=== PATIENT | male | born 1965 | race Caucasian/White ===

== ENCOUNTER 2017-12-22 18:13 | Inpatient (IN) | payer BC ==
[~2017-12-22] VITALS: Ht 177.8 cm; Wt 71.8 kg
[2017-12-22] MEDS ORDERED: SYMLIN600 MCG/1 SUBQ (18:14)
[2017-12-22 19:15] VITALS: BP 118/77
[2017-12-22 19:19] LABS: BASOPHILS % (AUTO) 1.7 % (0.0-2.0); EOSINOPHILS % (AUTO) 2.7 % (0.0-3.0); HEMATOCRIT 40.3 % (42.0-52.0); HEMOGLOBIN 13.5 G/DL (14.2-18.0); LYMPHOCYTES % (AUTO) 16.9 % (20.0-45.0); MEAN CORPUSCULAR VOLUME 91 FL (80-99); MONOCYTES % (AUTO) 5.4 % (1.0-10.0); NEUTROPHILS % (AUTO) 73.5 % (45.0-75.0); PLATELET COUNT 236 K/UL (150-450); RED BLOOD COUNT 4.41 M/UL (4.70-6.10); RED CELL DISTRIBUTION WIDTH 12.1 % (11.6-14.8)
[2017-12-22 19:20] VITALS: BP 118/77
[2017-12-22 19:23] LABS: ANION GAP 9 mmol/L (5-15); BLOOD UREA NITROGEN 15 mg/dL (7-18); CALCIUM 8.6 MG/DL (8.5-10.1); CARBON DIOXIDE 27 MMOL/L (21-32); CHLORIDE 98 MMOL/L (98-107); CREATININE 1.1 MG/DL (0.55-1.30); POTASSIUM 4.2 MMOL/L (3.5-5.1); SODIUM 134 MMOL/L (136-145)
[2017-12-22 19:27] LABS: ALANINE AMINOTRANSFERASE 33 U/L (12-78); ALBUMIN/GLOBULIN RATIO 0.9 (1.0-2.7); ALKALINE PHOSPHATASE 118 U/L (46-116); ASPARTATE AMINO TRANSFERASE 15 U/L (15-37); BILIRUBIN,TOTAL 0.3 MG/DL (0.2-1.0)
[2017-12-22 19:43] LABS: APPEARANCE,URINE CLEAR; BILIRUBIN, URINE NEGATIVE (NEGATIVE); COLOR,URINE PALE YELLOW; GLUCOSE, URINE (UA) 4+ (NEGATIVE); KETONES,URINE NEGATIVE (NEGATIVE); LEUKOCYTE ESTERASE ,URINE NEGATIVE (NEGATIVE); NITRITE,URINE NEGATIVE (NEGATIVE); PH,URINE 7 (4.5-8.0); PROTEIN,URINE NEGATIVE (NEGATIVE); UROBILINOGEN,URINE NORMAL MG/DL (0.0-1.0)
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
[2017-12-22] MEDS: Heparin 5000 units/ml inj SUBQ SCH (21:00)
[2017-12-22] MEDS ORDERED: Ketorolac 30mg Inj IV ONE (21:00)
[2017-12-22 22:00] VITALS: BP 127/92
[2017-12-22 23:20] VITALS: BP 127/77
[2017-12-22] MEDS: Levemir Flexpen SUBQ SCH (23:53)
[2017-12-23] MEDS: NovoLOG Insulin Flexpen SUBQ SCH ×4 (06:02→21:00)
[2017-12-23 07:58] LABS: ALANINE AMINOTRANSFERASE 36 U/L (12-78); ALBUMIN 2.8 G/DL (3.4-5.0); ALBUMIN/GLOBULIN RATIO 0.9 (1.0-2.7); ALKALINE PHOSPHATASE 94 U/L (46-116); ANION GAP 6 mmol/L (5-15); ASPARTATE AMINO TRANSFERASE 10 U/L (15-37); BILIRUBIN,TOTAL 0.3 MG/DL (0.2-1.0); BLOOD UREA NITROGEN 12 mg/dL (7-18); CALCIUM 8.5 MG/DL (8.5-10.1); CARBON DIOXIDE 28 MMOL/L (21-32); CHLORIDE 108 MMOL/L (98-107); CHOLESTEROL 149 MG/DL (< 200); CREATININE 0.8 MG/DL (0.55-1.30); HDL CHOLESTEROL 51 MG/DL (40-60); POTASSIUM 3.6 MMOL/L (3.5-5.1); SODIUM 142 MMOL/L (136-145); TRIGLYCERIDES 74 MG/DL (30-150)
[2017-12-23 08:00] VITALS: BP 122/75
[2017-12-23] MEDS: Heparin 5000 units/ml inj SUBQ SCH ×2 (08:43→20:58)
[2017-12-23 12:00] VITALS: BP 115/80
--- NOTE | 2017-12-23 14:19 | Diagnostic Imaging Report ---
Indication: Pain Technique: XRAY Shoulder Compl L Comparison: None Findings: No acute fracture identified. There are degenerative changes of the glenohumeral and acromioclavicular joints which are otherwise maintained. There is no dislocation. Imaged portions of the left lung grossly clear. No radiopaque foreign body. Impression: Mild degenerative change of the glenohumeral and acromioclavicular joints. No evidence of acute fracture or dislocation.
--- NOTE | 2017-12-23 15:47 | History & Physical ---
History and Physical History & Physicial dict ok for transfer to psych facility Vikram Stuart MD Dec 23, 2017 15:47
[2017-12-23 16:00] VITALS: BP 109/66
[2017-12-23] MEDS ORDERED: LORazepam 1mg tab ORAL PRN (19:15)
[2017-12-23 20:00] VITALS: BP 130/78
[2017-12-23] MEDS: Levemir Flexpen SUBQ SCH (20:59)
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
[2017-12-24] VITALS: BP 126/65
--- NOTE | 2017-12-24 00:40 | Cardiology Report ---
APPROVED REPORT EKG Measurement Heart [id number] Normal sinus rhythm Left bundle branch block Abnormal ECG
[2017-12-24 04:00] VITALS: BP 126/65
[2017-12-24] MEDS: NovoLOG Insulin Flexpen SUBQ SCH ×2 (06:10→12:16)
[2017-12-24 08:00] VITALS: BP 113/54
--- NOTE | 2017-12-24 09:25 | General Progress Note ---
Assessment/Plan Assessment/Plan 1. Diabetes, out of control with hyperosmolar state, but not coma with no ketosis. 2. Suicidal ideation. 3. Low back pain. 4. R breast slightly tender subareolar mass 3 cm, no dc refused transfer to psych facility by PET team not seen by psych yet mass needs outpatient eval but no reason to delay transfer for psych care BS ok Subjective Constitutional: Reports: other - R breast lump, tender Allergies: Coded Allergies: No Known Allergies (Unverified , 12/22/17) Objective Last 24 Hour Vital Signs Date Time Temp Pulse Resp B/P (MAP) Pulse Ox O2 Delivery O2 Flow Rate FiO2 12/24/17 08:00 98.1 75 20 113/54 (73) 96 98.1 12/24/17 04:00 98.0 88 20 126/65 (85) 99 98.0 88 12/24/17 00:00 97.5 66 20 126/65 (85) 93 97.5 66 12/23/17 21:00 Room Air 12/23/17 20:00 98.4 77 20 130/78 (95) 96 98.4 77 12/23/17 16:00 97.4 72 20 109/66 (80) 96 97.4 72 12/23/17 13:16 97.5 12/23/17 12:17 97.5 12/23/17 12:00 97.6 67 20 115/80 (92) 100 97.6 67 Intake and Output 12/23/17 12/24/17 19:00 07:00 Intake Total 920 ml 360 ml Balance 920 ml 360 ml Intake Oral 920 ml 360 ml # Voids 3 2 Height (Feet): 5 Height (Inches): 10.00 Weight (Pounds): 158 General Appearance: WD/WN, no apparent distress, alert Neck: normal alignment Cardiovascular: normal rate Respiratory/Chest: lungs clear Abdomen: non tender Objective R breast slightly tender subareolar mass 3 cm, no dc Vikram Stuart MD Dec 24, 2017 09:25
[2017-12-24] MEDS: Heparin 5000 units/ml inj SUBQ SCH (09:43)
[2017-12-24 12:00] VITALS: BP 125/77
--- NOTE | 2017-12-24 12:59 | Consultation ---
History of Present Illness General Date patient seen: Dec 24, 2017 Chief Complaint: Abnormal Labs Present Illness HPI The patient is a 52 yo male with hx of insulin-dependent diabetes for about 15 years, also meth use and depression. the pt has been labile crying and uncooperative. the pt stated that he wanted to and there is nothing to look forward to. Allergies: Coded Allergies: No Known Allergies (Unverified , 12/22/17) Medication History Miscellaneous Medications Insulin Regular, Human (Humulin R), Unknown Dose SUBQ, (Reported) Patient History Limited by: medical condition History Provided By: Patient, Medical Record, PMD Healthcare decision maker N Resuscitation status Full Code Advanced Directive on File Past Medical/Surgical History Past Medical/Surgical History: (1) Uncontrolled diabetes mellitus (2) Noncompliance with medications (3) Suicidal ideation Review of Systems Psychiatric: Reports: prior hx, anxiety, depressed feelings, emotional problems Physical Exam General Appearance: no apparent distress, alert Neurologic: oriented x 3, responsive, depressed affect Last 24 Hour Vital Signs Date Time Temp Pulse Resp B/P (MAP) Pulse Ox O2 Delivery O2 Flow Rate FiO2 12/24/17 12:00 97.8 64 20 125/77 (93) 95 97.8 12/24/17 10:40 98.1 12/24/17 09:00 Room Air 12/24/17 08:00 98.1 75 20 113/54 (73) 96 98.1 12/24/17 04:00 98.0 88 20 126/65 (85) 99 98.0 88 12/24/17 00:00 97.5 66 20 126/65 (85) 93 97.5 66 12/23/17 21:00 Room Air 12/23/17 20:00 98.4 77 20 130/78 (95) 96 98.4 77 12/23/17 16:00 97.4 72 20 109/66 (80) 96 97.4 72 12/23/17 13:16 97.5 Intake and Output 12/23/17 12/24/17 19:00 07:00 Intake Total 920 ml 360 ml Balance 920 ml 360 ml Intake Oral 920 ml 360 ml # Voids 3 2 Height (Feet): 5 Height (Inches): 10.00 Weight (Pounds): 158 Medications Current Medications Medications (Trade) Dose Ordered Sig/Nasir Route PRN Reason Start Time Stop Time Status Last Admin Dose Admin Acetaminophen (Tylenol) 650 mg Q6H PRN ORAL Mild Pain/Temp > 100.5 12/22/17 22:45 01/21/18 22:44 12/24/17 09:41 Dextrose (Dextrose 50%) 25 ml STAT PRN IV Hypoglycemia 12/22/17 23:00 01/21/18 22:59 Dextrose (Dextrose 50%) 50 ml STAT PRN IV Hypoglycemia 12/22/17 23:00 01/21/18 22:59 Heparin Sodium (Porcine) (Heparin 5000 units/ml) 5,000 units EVERY 12 HOURS SUBQ 12/22/17 21:00 01/21/18 20:59 12/24/17 09:43 Ibuprofen (Motrin) 400 mg BID PRN ORAL For Pain 12/22/17 22:45 01/21/18 22:44 12/23/17 12:17 Insulin Aspart (NovoLOG) BEFORE MEALS AND HS SUBQ 12/23/17 06:30 01/22/18 06:29 12/24/17 12:16 Insulin Detemir (Levemir) 10 units BEDTIME SUBQ 12/22/17 22:45 01/21/18 22:44 12/23/17 20:59 Lorazepam (Ativan) 2 mg Q6H PRN ORAL For Anxiety 12/23/17 19:15 12/30/17 19:14 Risperidone (RisperDAL) 2 mg QHS ORAL 12/23/17 21:00 01/22/18 20:59 12/23/17 20:49 Sodium Chloride 1,000 ml @ 100 mls/hr Q10H IV 12/22/17 22:45 01/21/18 22:44 12/24/17 05:53 Assessment/Plan Status: stable Assessment/Plan Meth dependence MDD DTS -lexapro 10mg qam -risperdal 2mg qhs -ativan prn -pet team [facility] Rodolfo Wong MD Dec 24, 2017 12:59
[2017-12-24] MEDS ORDERED: LEXAPRO10 MG ORAL (14:59)
[2017-12-24] MEDS ORDERED: ACETAMINOPHEN325 M1 ORAL (14:59)
[2017-12-24] MEDS ORDERED: IBUPROFEN600 MG ORAL (15:00)
[2017-12-24] MEDS ORDERED: LEVEMIR FL100 UNIT/1 SUBQ (15:01)
[2017-12-24] MEDS ORDERED: ATIVAN2 MG ORAL (15:02)
[2017-12-24] MEDS ORDERED: NOVOLOG100 UNIT/3 SUBQ (15:03)
[2017-12-24] MEDS ORDERED: RISPERDAL2 MG ORAL (15:03)
--- NOTE | 2017-12-26 12:45 | Discharge Summary ---
Discharge Summary Discharge Summary _ DATE OF ADMISSION: 12/22/2017 DATE OF DISCHARGE: 12/24/2017 REASON FOR ADMISSION: 52 years old male with history of diabetes , lives in the , noncompliant with his medication regimen, came to emergency room since he was off insulin for several days. Upon evaluation blood glucose 494 with stable anion gap and bicarbonate. Patient also complained of low back pain, chronic. No leukocytosis,stable hemoglobin and hematocrit , stable liver enzymes , renal parameters and electrolytes. Patient with history of methamphetamine use as was learned from conversation with his Patient on verge of divorce because of this problem. Patient severely depressed and suicidal and was on psychiatric hold at [facility] recently. Patient admitted with diagnoses of diabetes out of control with hyperosmolar state, low back pain, suicidal ideation, methamphetamine dependence CONSULTANTS: psychiatrist [facility] COURSE: Patient admitted. Blood sugar was managed with long-acting Levemir and short-acting NovoLog. DVT prophylaxis provided. Patient was given gentle IV hydration. Hemoglobin A1c - 12 ,clearly not at goal. Patient will need further optimization of anti-glycemic regimen and compliance with medication regimen as outpatient. Bowel regimen instituted. Pain management was addressed. Patient was counseled on abstinence from illicit street drugs. Psychiatrist seen and evaluated patient, diagnosed patient with ,ethadone dependency, major depressive disorder and stated that patient will need a PET team evaluation for transfer to psychiatric facility. Psychiatrist optimized psychiatric medication regimen. PET team placed patient on 5150. Blood sugar stabilized. Upon physical exam noted right breast slightly tender. subareolar mass 3 cm, no discharge. Patient will need outpatient evaluation for the right breast mass. Patient subsequently was transferred to [facility]. FINAL DIAGNOSES: Diabetes out of control with hyperosmolar state , improved Low back pain Suicidal ideation Major depressive disorder Methadone dependency Right breast subareolar mass DISCHARGE MEDICATIONS: See Medication Reconciliation list. DISCHARGE INSTRUCTIONS: Patient was transferred to psychiatric hospital for further management. I have been assigned to dictate discharge summary for this account. I was not involved in the patient's management. Inez Levine NP Dec 26, 2017 12:45
== END 2017-12-24 16:28 | DRG 638 ==
LOC: EDBD 18:13 → EMR 19:03 → 4E 21:00 → EDBEDREQ 21:22
DX: E11.00 Type 2 diabetes mellitus with hyperosmolarity without nonketotic hyperglycemic-hyperosmolar coma (NKHHC) (principal); R45.851 Suicidal ideations; F15.20 Other stimulant dependence, uncomplicated; Z79.4 Long term (current) use of insulin; E11.65 Type 2 diabetes mellitus with hyperglycemia; M54.5 Low back pain; Z91.14 Patient's other noncompliance with medication regimen; F32.9 Major depressive disorder, single episode, unspecified; N63.41 Unspecified lump in right breast, subareolar
CPT/HCPCS: 36415; 80053; 80061; 81003; 82009; 82962; 83036; 83735; 84443; 85025; 93005; 96361; 96372; 96374; 99285; J1815; S5561